=== PATIENT | male | born 1950 | race Caucasian/White ===

== ENCOUNTER → 2019-06-07 | Outpatient (CLI) | payer MEDICARE, BC ==
--- NOTE | 2019-06-07 12:11 | ECHOS ---
STRESS ECHOCARDIOGRAM DATE OF SERVICE: 06/07/2019 INDICATIONS: Dyspnea. MEDICATIONS: BASELINE HEART RATE: 64 BASELINE BLOOD PRESSURE: 165/85 MAXIMUM HEART RATE: 129 MAXIMUM BLOOD PRESSURE: 180/79 85% MPHR: 129 100% MPHR: 152 METS: 10 MAXIMUM STAGE REACHED: III TOTAL EXERCISE TIME: 9 minutes CLINICAL INFORMATION: Baseline EKG shows sinus rhythm with right bundle branch block. The patient exercised on Efe protocol for a total of 9 minutes, achieving 10 METs, 85% of predicted maximal heart rate without chest pain or diagnostic ST-segment depression. Baseline echo shows normal left ventricular size, wall motion and systolic function. Postexercise, there is normal hyperdynamic response of all segments of myocardium noted. PVCs are noted throughout the study. A contrast agent was used to enhance endocardial visualization. CONCLUSIONS: 1. Good exercise tolerance. 2. Inconclusive EKG part of the stress test due to baseline EKG abnormalities. 3. Negative stress echo. MMODL / IJN: [id number] /
== END | disposition home or self-care (01) ==
LOC: RADNMMAIN 09:47
PROVIDERS: ATTEND Family Medicine
DX: R94.31 Abnormal electrocardiogram [ECG] [EKG] (principal)
CPT/HCPCS: C8930; Q9950; 93351

== ENCOUNTER → 2019-08-10 | Outpatient (CLI) | payer MEDICARE, BC ==
[2019-08-10 17:10] LABS: African American GFR (CKD) >90 (>60 ml/min/1.73 sqM); Blood Urea Nitrogen 16 mg/dL (9-20); Non-African American GFR(CKD) 83 (>60 ml/min/1.73 sqM)
--- NOTE | 2019-08-10 20:17 | CT ---
EXAMINATION TYPE: CT chest w con DATE OF EXAM: 08/10/2019 COMPARISON: None HISTORY: Lung mass CT DLP: 566.90 mGycm Automated exposure control for dose reduction was used. CONTRAST: CT scan of the chest is performed with IV Contrast, patient injected with 100 mL of Isovue 300. FINDINGS: LUNGS: 8 mm pulmonary nodule left upper lobe anteriorly image 37 of 64. Margins are slightly irregula r. Malignancy is not excluded. Consider PET/CT. No additional nodules identified. No evidence of pulm onary mass. No infiltrate. No evidence for pleural effusion or volume loss. MEDIASTINUM: There are no greater than 1 cm hilar or mediastinal lymph nodes. No pericardial effusi on is seen. Thoracic aorta is of normal caliber. The heart is not enlarged. UPPER ABDOMEN: Hepatic cystic changes noted. OTHER: No additional significant abnormality is seen. IMPRESSION: 8 mm pulmonary nodule left upper lobe anteriorly image 37 of 64. Margins are slightly ir regular. Malignancy is not excluded. Consider PET/CT.
== END ==
LOC: RADCTMAIN 16:20
PROVIDERS: ATTEND Family Medicine
DX: R91.1 Solitary pulmonary nodule (principal)
CPT/HCPCS: 82565; 84520; 71260; 36415; Q9967

== ENCOUNTER → 2019-08-26 | Outpatient (CLI) | payer MEDICARE, BC ==
--- NOTE | 2019-08-31 14:36 | PE ---
Nuclear medicine PET/CT history: Pulmonary nodule, initial Patient received 12.4 mCi F-18 FDG intravenously in delayed scanning was performed from skull base to the mid thighs. Localization and attenuation correction CT scan was performed. Neck and chest: The left upper lobe lung nodule is subcentimeter in size. No suspicious hypermetaboli c uptake is evident. There is no pleural or pericardial effusion. Coronary artery calcifications are mild and minimal. No mediastinal, axillary, or hilar adenopathy. No supraclavicular or cervical adeno tal. ABDOMEN: Hypodense focus within the left lobe of the liver measures 4 cm and is photopenic. Focus wit hin the caudate lobe measures approximately the same shows similar characteristics as does a smaller focus within the inferior margin of the left lobe of liver measuring 12 mm. No retroperitoneal adenop athy or ascites. There is an exophytic focus at the upper pole the right kidney measuring 19 mm which does not show Hounsfield units consistent with cysts. No definite associated hypermetabolic uptake, which may represent a proteinaceous cyst. Spleen is enlarged. Left inguinal hernia is suspected. Ther e is no pelvic adenopathy. No suspicious hypermetabolic uptake. Osseous structures show degenerative disc changes at the lumbosacral junction. No suspicious uptake. IMPRESSION: Pulmonary nodule may be below the size threshold to demonstrate abnormal uptake. Consider follow-up chest CT in 6 months to assess for stability. Splenomegaly, possible proteinaceous cyst ri ght kidney, follow-up suggested, and additional findings above.
== END | disposition home or self-care (01) ==
LOC: RADPETMAIN 10:21
PROVIDERS: ATTEND Family Medicine
DX: R91.1 Solitary pulmonary nodule (principal); R16.1 Splenomegaly, not elsewhere classified
CPT/HCPCS: 78815; A9552

== ENCOUNTER → 2019-12-27 | Outpatient (CLI) | payer MEDICARE, BC ==
[2019-12-28 14:50] VITALS: BMI 33.2
== END | disposition home or self-care (01) ==
LOC: DBWHC3 09:51
PROVIDERS: ATTEND Family Medicine
DX: E66.3 Overweight (principal); Z68.33 Body mass index [BMI] 33.0-33.9, adult
CPT/HCPCS: 97802

== ENCOUNTER → 2020-02-27 | Outpatient (CLI) | payer MEDICARE, BC ==
--- NOTE | 2020-02-27 10:49 | CT ---
EXAMINATION TYPE: CT chest wo con DATE OF EXAM: 02/27/2020 COMPARISON: CT chest 08/10/2019. PET/CT 08/26/2019. HISTORY: lung nodule CT DLP: 461.4 mGycm Automated exposure control for dose reduction was used. CONTRAST: CT scan of the chest is without intravenous contrast. FINDINGS: LUNGS: Unchanged oval 8 x 6 mm pulmonary nodule within the inferior left upper lobe (4:41). No pleura l effusion. No pneumothorax. The tracheobronchial tree is patent. MEDIASTINUM/SOFT TISSUES: No axillary, hilar, or mediastinal lymphadenopathy greater than 1 cm. Cardi ac size is normal. No pericardial effusion. No thoracic aortic aneurysm. UPPER ABDOMEN: No adrenal nodule. Multiple hepatic cysts cysts are redemonstrated. There is an exophy tic lesion of the right renal upper pole measuring 1.5 cm, with Hounsfield units 20 at the superior a spect and 33 at the inferior aspect, with no evidence of enhancement between current noncontrast exam ination and 08/10/2019 CT arterial phase comparison. OSSEOUS: Degenerative changes of the spine. IMPRESSION: 1. Single left upper lobe solid 8 mm pulmonary nodule is unchanged on 7 month follow-up CT examinati on. Per Fleischner 2017 criteria, recommend follow-up CT in 1 year for stability. 2. Right renal upper pole lesion likely represents cyst, however is borderline indeterminate. Recomm end follow-up with renal ultrasound for further characterization.
== END | disposition home or self-care (01) ==
LOC: RADCTMAIN 07:11
PROVIDERS: ATTEND Family Medicine
DX: R91.1 Solitary pulmonary nodule (principal)
CPT/HCPCS: 71250

== ENCOUNTER → 2022-02-20 | Outpatient (CLI) | payer MEDICARE, BC ==
--- NOTE | 2022-02-20 18:14 | CT ---
EXAMINATION TYPE: CT abdomen pelvis wo con DATE OF EXAM: 02/20/2022 COMPARISON: PET CT 08/26/2019 INDICATION: abnormal liver scan DLP: 576 mGycm, Automated exposure control for dose reduction was used. CONTRAST: 0 mL of Isovue 300. Study performed with Oral Contrast TECHNIQUE: Axial images were obtained from above the diaphragm to the pubic rami in the axial plane a t 5 mm thick sections. Reconstructed images are reviewed on the computer in the coronal plane. FINDINGS: Limited CT sections are obtained the lung bases. The lung bases are clear. CT ABDOMEN: Liver: There is a 3.4 cm cyst measuring 11 Hounsfield units compatible with a cyst. This was present previously and appears stable. An additional cyst is in the caudate lobe 1.1 cm cyst is in the anteri or right lobe liver measuring 8 Hounsfield units. Measuring 3.5 cm and is stable from comparison. Spleen: Normal Pancreas: Normal Adrenal glands: Left adrenal gland measures 1.9 cm transverse which is somewhat larger than the 1.6 c m on the comparison. Gallbladder: Normal Kidneys: No masses are evident. No hydronephrosis is present. No cysts are present. No renal calci fications evident. Aorta: Vascular calcification is within the aorta. Inferior vena cava: Normal. CT PELVIS: Loops of bowel within the abdomen and pelvis are normal. There are loops of bowel which are incom pletely distended or lack oral contrast limiting their evaluation. Appendix: Normal as visualized. Urinary bladder: Urinary bladder wall thickening may diffusely be present. Genitourinary structures: Prostate is very prominent. May have some inferior impression on the urinar y bladder Osseous structures: No suspicious lytic or sclerotic lesions. IMPRESSIONS: 1. Stable appearing cysts within the liver. 2. Mild increase in size of a left adrenal thickening. Metastatic disease is not excluded. 3. Diffuse urinary bladder wall thickening. Correlate for cystitis. Additional workup is recommended for further etiologies including neoplasm.
== END | disposition home or self-care (01) ==
LOC: RADCTMAIN 11:22
PROVIDERS: ATTEND Nurse Practitioner Adult Health
DX: K76.9 Liver disease, unspecified (principal)
CPT/HCPCS: 74176

== ENCOUNTER → 2022-03-25 | Outpatient (CLI) | payer MEDICARE, BC ==
--- NOTE | 2022-03-26 07:34 | MR ---
EXAMINATION TYPE: MR abdomen wo/w con DATE OF EXAM: 03/25/2022 COMPARISON: Prior CT abdomen and pelvis February 20, [address] November 01, 2021. Older CTs are not available due to PACS downtime HISTORY: Abnormal CT, adrenal mass. CONTRAST: Standard multiplanar, multisequence MRI departmental protocol images were obtained without contrast a nd with 9 mL intravenous Gadavist gadolinium contrast. Imaging performed of the abdomen focusing on the bilateral adrenal glands FINDINGS: Adrenals: Slight nodularity to both adrenal glands left larger than right is redemonstrated. This is best appreciated on the right axial image 52 series 701. There is diffuse signal dropout on in and ou t of phase imaging consistent with benign lipid rich hyperplasia and/or small adenomas. Other: Lung bases are grossly clear. There are a few thin-walled cysts redemonstrated scattered thro ughout the liver. Gallbladder now suspected surgically absent or contracted in appearance as is now n ot distinctly visualized. The spleen and pancreas appear within normal limits. There is partially exophytic 1.4 cm benign thin- walled cyst laterally left kidney coronal image 16. The exophytic thin-walled cyst or cystic lesion f rom the lateral aspect upper pole right kidney measuring near 1.5 cm it has some inferior T1 hyperint ense and T2 hypointense fluid felt to reflect some proteinaceous fluid within thin-walled cyst. No fagan spicious enhancement is present. No hydronephrosis seen bilaterally. No suspicious small or large bowel dilatation. There is disc space narrowing with endplate changes at the lumbosacral junction noted. 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
== END | disposition home or self-care (01) ==
LOC: RADMRIMAIN 17:15
PROVIDERS: ATTEND Nurse Practitioner Adult Health
DX: R19.09 Other intra-abdominal and pelvic swelling, mass and lump (principal)
CPT/HCPCS: 74183; A9585

== ENCOUNTER 2022-04-10 09:50 | Day surgery (SDC) | payer MEDICARE, BC ==
[2022-04-09 11:50] VITALS: BMI 64.4
[2022-04-10 10:32] VITALS: TEMP 97.6
[2022-04-10] MEDS: LACTATED RINGERS 1,000 ML IV SCH ×2 (10:39→11:39)
[2022-04-10 10:41] LABS: Glucose,Whole Blood 99 mg/dL (70-110)
[2022-04-10] MEDS ORDERED: PROPOFOL 10 MG/ML 20 ML VIAL IV ONE (11:39)
[2022-04-10] MEDS ORDERED: LIDOCAINE 2% INJ 20 MG/ML (2 ML VIAL) ONE (11:39)
--- NOTE | 2022-04-10 12:00 | P.PCN ---
Date of Procedure: 04/10/22 Procedure(s) Performed: Brief history: Patient is a pleasant 71-year-old white male scheduled for an elective upper endoscopy as well as colonoscopy as a part of evaluation of GERD and screening for colon cancer Procedure performed: Esophagogastroduodenoscopy Colonoscopy and snare polypectomy Preoperative diagnosis: GERD Screening for colon cancer Anesthesia: MAC Procedure: After informed consent was obtained from the patient was brought into the endoscopy unit and IV sedation was administered by anesthesia under continuous monitoring. Initially upper endoscopy was done. The Olympus GF 160 video endoscope was inserted inserted into the mouth and esophagus intubated without any difficulty and was gradually advanced into the stomach and duodenum and carefully examined. The bulb and second part of the duodenum appeared normal. The scope was then withdrawn into the stomach adequately insufflated with air and upon careful examination the antrum had mild gastritis. The body, cardia and fundus appeared normal. The scope was then withdrawn into the esophagus. The GE junction was located at 40 cm to the incisors. It appeared irrregular with no erywere 2 small erosions consistent with LA grade A reflux esophagitis.Rest of the esophagus appeared normal. Patient tolerated the proce dure well. At this time the patient continued to remain sedation. Initial digital rectal examination was normal. Olympus CF 160 video colonoscope was then inserted into the rectum and gradually advanced to the cecum without any difficulty. Careful examination was performed as the scope was gradually being withdrawn. The prep was excellent. The cecum had a 5 mm polyp that was removed by snare polypectomy. Rest of the, ascending colon, transverse colon, descending colon, sigmoid colon and rectum appeared normal. Retroflexion was performed in the rectum and small internal hemorrhoids were noted. Patient tolerated the procedure well. Impression: 1. Upper endoscopy revealed mild antral gastritis and LA grade A reflux esophagitis 2. Colonoscopy revealed a 5 mm cecal polyp status post polypectomy and small internal hemorrhoids Recommendations: Findings of this examination were discussed with the patient as well as his family. He was advised to follow with the biopsy results. If the biopsy doesn't have adenoma to have a repeat colonoscopy in 5 years.
[2022-04-10 12:10] VITALS: RESP 16
[2022-04-10 12:25] VITALS: BP 145/90; PULSE 78
== END 2022-04-10 12:40 | disposition home or self-care (01) ==
LOC: ORWHC2ENDO 09:50
PROVIDERS: ATTEND Internal Medicine Gastroenterology
DX: Z12.11 Encounter for screening for malignant neoplasm of colon (principal); D12.0 Benign neoplasm of cecum; K21.00 Gastro-esophageal reflux disease with esophagitis, without bleeding; I10 Essential (primary) hypertension; Z91.041 Radiographic dye allergy status; E11.9 Type 2 diabetes mellitus without complications; E78.5 Hyperlipidemia, unspecified; J45.909 Unspecified asthma, uncomplicated; Z79.890 Hormone replacement therapy; Z79.899 Other long term (current) drug therapy; Z79.891 Long term (current) use of opiate analgesic; Z79.84 Long term (current) use of oral hypoglycemic drugs
CPT/HCPCS: 88305; 45385; 43235; J2704; J2001

== ENCOUNTER → 2022-05-15 | Outpatient (CLI) | payer MEDICARE, BC | END | disposition home or self-care (01) | LOC: LABWHC1 09:26 | PROVIDERS: ATTEND Urology | DX: D35.00 Benign neoplasm of unspecified adrenal gland (principal) | CPT/HCPCS: 36415; 82088; 82533; 83835; 84244 ==

== ENCOUNTER → 2022-06-15 | Outpatient (CLI) | payer MEDICARE, BC ==
--- NOTE | 2022-06-15 15:15 | CT ---
EXAMINATION TYPE: CT adrenal glands wo/w con CT DLP: 1066.5 mGycm, Automated exposure control for dose reduction was used. 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 Sagittal and coronal reformats were created on a separate workstation. Contrast used:70ML mL of Isovue 300 with IV Contrast, Oral contrast used:None FINDINGS: LOWER CHEST: Unremarkable ABDOMEN LIVER: Hepatic cysts are present. These are unchanged from prior PET CT 08/26/2019. GALLBLADDER AND BILE DUCTS: Unremarkable. PANCREAS: Unremarkable. SPLEEN: Unremarkable. ADRENAL GLANDS: Unchanged appearance of the adrenal gland dating back to 08/26/2019 /CT which did not demonstrate increased radiotracer uptake. KIDNEYS AND URETERS: No evidence of hydronephrosis or renal calculus. Right upper pole renal cyst. PELVIS BLADDER: Unremarkable REPRODUCTIVE: Unremarkable. ABDOMEN & PELVIS STOMACH AND BOWEL: No evidence of bowel obstruction. PERITONEUM: No evidence of pneumoperitoneum or free fluid. VASCULATURE: No evidence of aortic aneurysm. Atherosclerosis of the arterial vasculature. MUSCULOSKELETAL: No acute osseous abnormalities LYMPH NODES: No gross evidence for lymphadenopathy. 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 These are stable back to . Given stability over time, no additional workup required by imaging criteria.
== END | disposition home or self-care (01) ==
LOC: RADCTMAIN 13:50
PROVIDERS: ATTEND Urology
DX: D35.01 Benign neoplasm of right adrenal gland (principal); D35.02 Benign neoplasm of left adrenal gland
CPT/HCPCS: 82565; 84520; 36415; 74170; Q9967